=== PATIENT | male | born 1995 | race Caucasian/White ===

== ENCOUNTER 2020-02-10 12:08 | Emergency (ER) | payer OTHER, SELFPAY ==
[2020-02-10 12:20] VITALS: BP 133/80; PULSE 69; RESP 18; TEMP 36.6; O2SAT 97; BMI 24.3
--- NOTE | 2020-02-10 12:41 | HMH.EDUTC ---
[facility] [place] Disposition Clinical Impression: Migraine Qualifiers: Migraine type: with aura Status migrainosus presence: without status migrainosus Intractability: not intractable Qualified Code(s): G43.109 - Migraine with aura, not intractable, without status migrainosus Disposition: Home, Self-Care Condition on Discharge: Good Instructions: DI for Migraine Additional Instructions: Drink plenty of fluids. Follow up with your regular doctor. GO TO THE ER FOR ANY WORSENING SYMPTOMS Referrals: PCP,No [Primary Care Provider] - Forms: Work/School Release Time of Disposition: 13:03 Medical Decision Making - Medical Records Medical records reviewed: No: I reviewed the patient's medical records. - Geoff Inquiry Pt receiving controlled substance: No Vital Signs: 02/10/20 12:20 02/10/20 13:18 Temperature 97.9 F 97.9 F Temperature Source Oral Pulse Rate 69 Pulse Rate [Left Radial] 69 Respiratory Rate 18 18 Blood Pressure 133/80 Blood Pressure [Left Arm] 133/80 Blood Pressure Mean [Left Arm] 97 Blood Pressure Source [Left Arm] Automatic Cuff Blood Pressure Position [Left Arm] Sitting 02 Sat by Pulse Oximetry 97 Oxygen Delivery Method Room Air Orders (Tests/Meds): ED MEDICATIONS Discontinued Medications Generic Name Dose Route Start Last Admin Trade Name Freq PRN Reason Stop Dose Admin Dexamethasone Sodium Phosphate 8 mg 02/10/20 12:42 02/10/20 13:00 Dexamethasone 4mg/Ml 1ml Vial IM 02/10/20 12:43 8 mg ONCE ONE Administration Ketorolac Tromethamine 60 mg 02/10/20 12:42 02/10/20 13:00 Ketorolac 60mg/2ml Vial IM 02/10/20 12:43 60 mg ONCE ONE Administration Metoclopramide HCl 10 mg 02/10/20 12:43 02/10/20 13:01 Metoclopramide Hcl 10mg/2ml Vial IM 02/10/20 12:44 10 mg ONCE ONE Administration [facility] [place] HPI - General Stated complaint: migriane Time Seen by Provider: 02/10/20 12:41 Mode of Arrival: Ambulatory Source of Information: Patient, Significant Other Limitations: No Limitations Description of Symptoms (Recalled from Triage Doc. by RN): PATIENT C/O MIGRAINE WITH LIGHT SENSITIVITY SINCE THIS MORNING HEENT Symptoms (Recalled from RN notes): Yes Resp Symptoms (Recalled from RN notes): No Skin Symptoms (Recalled from RN notes): No MS Symptoms (Recalled from RN notes): No Functional Status (Recalled from RN notes): WNL - History of Present Illness Provider Complaint: He has a history of migraine headaches. He states that since this morning he has had a migraine. He c/o head ache, nausea, photophobia. - Related Data Home Medications Medication Instructions Recorded Confirmed No Known Home Medications 02/10/20 02/10/20 Allergies Allergy/AdvReac Type Severity Reaction Status Date / Time No Known Allergies Allergy Verified 02/10/20 12:31 - Worker's Comp Is this a Worker's Comp case?: No [facility] History - Hepatitis A Screen Drug use history?: No High risk sexual behaviors?: No History of sexually transmitted infection?: No Currently employed?: No Childcare worker?: No Do you have indoor plumbing?: Yes Do you have electricity?: Yes Attestation statement:: This patient has been screened for Hepatitis A risk factors. I have reviewed the patient's past medical history: Yes - Social History Alcohol Intake: never Occupational Status: other ROS Obtained: Yes All systems reviewed & no additional complaints - Constitutional Constitutional: Denies chills, Denies fever(s) - Eyes Eyes: Denies change in vision, Reports photophobia - ENT Ears, Nose, Mouth, and Throat: Reports system reviewed and no additional complaints, except as docu - Neurologic Neurologic: Reports as per HPI Physical Exam - General General appearance: alert, in no apparent distress - Head Head exam: atraumatic, normocephalic, normal inspection - Eye Eye exam: Present: normal appearance, PERRL, EOMI - ENT ENT exam: Present: normal exam, norm
[2020-02-10 13:18] VITALS: BP 133/80; PULSE 69; RESP 18; TEMP 36.6; O2SAT 97
== END 2020-02-10 13:20 | disposition home or self-care (01) ==
PROVIDERS: Emergency Provider Nurse Practitioner Family
DX: G43.109 Migraine with aura, not intractable, without status migrainosus (principal)
CPT/HCPCS: 96372; 99201